=== PATIENT | female | born 1975 | race Caucasian/White ===

== ENCOUNTER 2017-04-30 08:14 | Emergency (ER) | payer OTHER ==
[~2017-04-30] VITALS: Ht 157.4 cm; Wt 122.5 kg
[~2017-04-30 08:14] MED LIST: AMOXICILLIN500 MG PO; BACTRIM DS 8001 TA1 PO; COLACE100 MG PO; CYCLOBENZAPRINE10 MG PO; DEPO PROVER150 MG/M1 IM; HYDROCODONE BIT1 T11 PO; LISINOPRIL HCTZ1 TA1 PO; LISINOPRIL/HCTZ1 TA3 PO; MEDROL DOSEPAK4 MG PO; MOTRIN400 MG PO; MOTRIN800 MG PO; NAPROSYN500 MG PO; PROPRANOLOL HCL60 MG PO; PYRIDIUM200 MG PO; ULTRAM50 MG PO
[2017-04-30] MEDS ORDERED: CORTISPORIN SUS10 ML OT (09:00)
[2017-04-30] MEDS ORDERED: FLONASE ALLERG9.9 ML NAS (09:00)
[2017-04-30] MEDS ORDERED: PREDNISONE10 MG PO (09:00)
== END 2017-04-30 09:01 | disposition home or self-care (01) ==
LOC: ED 08:14
DX: H60.593 Other noninfective acute otitis externa, bilateral (principal); F17.200 Nicotine dependence, unspecified, uncomplicated; Z79.899 Other long term (current) drug therapy

== ENCOUNTER 2018-06-03 11:20 | Emergency (ER) | payer OTHER ==
[~2018-06-03] VITALS: Ht 157.4 cm; Wt 127.0 kg
--- NOTE | ~2018-06-03 | EKG ---
[place], [place] ELECTROCARDIOGRAM REPORT NAME: ROLAN BUTTERFIELD UNIT #: [id number] ROOM: DOCTOR: EPIPHANY DRAFT REPORT BIRTHDATE: [birth year] [facility] Test Date: 2018-06-03 Test Time: 12:25:46 Pat Name: ROLAN BUTTERFIELD Department: Room: Gender: F Music Leader: : 1975 Requested By: JOSEF MENDEZ DNP Order Number: [id number] Reading MD: Sathya Kaur MD Measurements Intervals [place] Rate: 103 P: 46 TN: 139 QRS: -2 QRSD: 82 T: 37 QT: 350 QTc: 458 Interpretive Statements Sinus tachycardia Low voltage, precordial leads Poor RWP Baseline wander in lead(s) V1 Electronically Signed On 06-08-2018 15:03:33 PDT by Sathya Kaur MD CM:EKGRPT:ELECTROCARDIOGRAM REPORT 1225 [id number] JOSEF MENDEZ DNP EPIPHANY DRAFT REPORT JOSEF MENDEZ DNP
[~2018-06-03 11:20] MED LIST changes: +CORTISPORIN SUS10 ML OT; +FLONASE ALLERG9.9 ML NAS; +PREDNISONE10 MG PO
[2018-06-03 12:12] LABS: BASO % 0.2 % (0.0-1.0); EOS # 0.1 10*3/uL (0.0-0.4); EOS % 0.5 % (1.0-4.0); HEMATOCRIT 47.5 % (37.0-47.0); LYMPH # 1.2 10*3/uL (1.3-4.4); MEAN CELL VOLUME 98.3 fl (81.0-99.0); MEAN CORPUSCULAR HGB 33.1 pg (27.0-31.0); MEAN CORPUSCULAR HGB CONC 33.7 g/dl (33.0-37.0); MEAN PLATELET VOLUME 10.9 fl (9.6-12.3); MONO # 0.6 10*3/uL (0.1-1.0); MONO % 4.7 % (3.0-9.0); NEUT % 85.1 % (47.0-73.0); PLATELET COUNT AUTOMATED 237 10*3/uL (130-400); RED BLOOD COUNT 4.83 10*6/uL (4.10-5.10); WHITE BLOOD COUNT 12.9 10*3/uL (4.8-10.8)
[2018-06-03 12:24] LABS: ACT PARTIAL THROMBO TIME 24.1 SECONDS (20.8-31.5)
[2018-06-03 12:42] LABS: ALBUMIN 3.5 gm/dl (3.1-4.5); ALKALINE PHOSPHATASE 59 U/L (45-117); BUN 9 mg/dl (7-24); CHLORIDE 104 mmol/L (98-107); SGOT/AST 45 IU/L (3-35); SGPT/ALT 61 U/L (12-78); SODIUM 137 mmol/L (136-145); TOTAL PROTEIN 7.1 gm/dL (6.4-8.2)
[2018-06-03 12:46] LABS: POTASSIUM 4.6 mmol/L (3.5-5.1); TROPONIN I < 0.015 ng/ml (<0.045)
== END 2018-06-03 13:55 | disposition home or self-care (01) ==
LOC: ED 11:20
PROVIDERS: Nurse Practitioner Family
DX: S29.012A Strain of muscle and tendon of back wall of thorax, initial encounter (principal); R07.89 Other chest pain; I10 Essential (primary) hypertension; F17.200 Nicotine dependence, unspecified, uncomplicated; Z79.899 Other long term (current) drug therapy; W18.39XA Other fall on same level, initial encounter; Y93.01 Activity, walking, marching and hiking; Y92.89 Other specified places as the place of occurrence of the external cause; Y99.8 Other external cause status

== ENCOUNTER 2018-06-06 13:06 | Emergency (ER) | payer OTHER ==
[~2018-06-06] VITALS: Ht 157.4 cm; Wt 127.0 kg
--- NOTE | ~2018-06-06 | EKG ---
[place], [place] ELECTROCARDIOGRAM REPORT NAME: ROLAN BUTTERFIELD UNIT #: [id number] ROOM: DOCTOR: YANIRA DRAFT REPORT BIRTHDATE: [birth year] [facility] Test Date: 2018-06-06 Test Time: 14:48:50 Pat Name: ROLAN BUTTERFIELD Department: Room: Gender: F Car Framer: Audrey Donohue : 1975 Requested By: THEA MARKS PA-C Order Number: [id number] Reading MD: Baldo Rubalcava Measurements Intervals [place] Rate: 75 P: 4 OK: 138 QRS: 2 QRSD: 85 T: 26 QT: 372 QTc: 416 Interpretive Statements Sinus rhythm Low voltage, precordial leads Electronically Signed On 06-08-2018 10:39:15 PDT by Baldo Rubalcava CM:EKGRPT:ELECTROCARDIOGRAM REPORT 1448 [id number] THEA MARKS PA-C EPIPHSTEVE DRAFT REPORT THEA MARKS PA-C
[2018-06-06 14:47] LABS: BASO # 0.1 10*3/uL (0.0-0.1); BASO % 0.3 % (0.0-1.0); EOS # 0.1 10*3/uL (0.0-0.4); EOS % 0.7 % (1.0-4.0); HEMATOCRIT 47.8 % (37.0-47.0); HEMOGLOBIN 16.1 g/dl (12.0-16.0); LYMPH # 1.6 10*3/uL (1.3-4.4); LYMPH % 9.2 % (27.0-41.0); MEAN CELL VOLUME 99.6 fl (81.0-99.0); MEAN CORPUSCULAR HGB 33.5 pg (27.0-31.0); MEAN CORPUSCULAR HGB CONC 33.7 g/dl (33.0-37.0); MONO # 0.8 10*3/uL (0.1-1.0); MONO % 4.6 % (3.0-9.0); NEUT # 14.9 10*3/uL (2.3-7.9); NEUT % 84.6 % (47.0-73.0); PLATELET COUNT AUTOMATED 276 10*3/uL (130-400); WHITE BLOOD COUNT 17.6 10*3/uL (4.8-10.8)
[2018-06-06 15:13] LABS: ALBUMIN 3.5 gm/dl (3.1-4.5); ALKALINE PHOSPHATASE 63 U/L (45-117); BUN 15 mg/dl (7-24); CHLORIDE 103 mmol/L (98-107); CREATININE 0.91 mg/dL (0.55-1.02); POTASSIUM 4.5 mmol/L (3.5-5.1); SGOT/AST 35 IU/L (3-35); SGPT/ALT 55 U/L (12-78); SODIUM 138 mmol/L (136-145); TOTAL PROTEIN 7.4 gm/dL (6.4-8.2)
[2018-06-06 15:14] LABS: TROPONIN I < 0.015 ng/ml (<0.045)
[2018-06-06 15:18] LABS: ACT PARTIAL THROMBO TIME 23.4 SECONDS (20.8-31.5)
[2018-06-06 15:27] LABS: BILIRUBIN NEGATIVE (NEGATIVE); BLOOD 1+ (NEGATIVE); CLARITY CLEAR (CLEAR); COLOR YELLOW (YELLOW); GLUCOSE NEGATIVE (NEGATIVE); KETONE NEGATIVE (NEGATIVE); LEUKO ESTERASE NEGATIVE (NEGATIVE); NITRITE NEGATIVE (NEGATIVE); PH 5.5 (5.0-9.0); UROBILINOGEN 0.2 E.U./dl (0.2-1.0)
[2018-06-06 15:33] LABS: BACTERIA 1+; WBC 0-2 wbc/hpf (0-5)
== END 2018-06-06 16:14 | disposition home or self-care (01) ==
LOC: ED 13:06
PROVIDERS: Physician Assistant
DX: F41.9 Anxiety disorder, unspecified (principal); I10 Essential (primary) hypertension; Z79.899 Other long term (current) drug therapy

== ENCOUNTER → 2018-07-05 | Outpatient (CLI) | payer OTHER ==
[~2018-07-05] MED LIST changes: +CLEOCIN HCL300 MG PO; +CLEOCIN150 MG PO; +EUCERIN DAILY400 ML PO; +HYDROCODONE-AC1 EAC1 PO; +NATURE'S BLEND F1 MG PO; +SULFAMETHOXAZOLE-TMP; +VITAMIN D5000 UNI1 PO
[2018-07-05 15:18] LABS: BASO % 0.3 % (0.0-1.0); EOS # 0.2 10*3/uL (0.0-0.4); EOS % 1.7 % (1.0-4.0); HEMATOCRIT 47.2 % (37.0-47.0); HEMOGLOBIN 15.7 g/dl (12.0-16.0); LYMPH # 2.3 10*3/uL (1.3-4.4); LYMPH % 17.6 % (27.0-41.0); MEAN CORPUSCULAR HGB 32.9 pg (27.0-31.0); MEAN CORPUSCULAR HGB CONC 33.3 g/dl (33.0-37.0); MEAN PLATELET VOLUME 11.3 fl (9.6-12.3); MONO # 0.9 10*3/uL (0.1-1.0); MONO % 6.7 % (3.0-9.0); NEUT # 9.5 10*3/uL (2.3-7.9); NEUT % 73.3 % (47.0-73.0); PLATELET COUNT AUTOMATED 268 10*3/uL (130-400); RED BLOOD COUNT 4.77 10*6/uL (4.10-5.10); RED CELL DISTRI WIDTH 12.9 % (0-14.5)
[2018-07-05 15:27] LABS: ALBUMIN 3.5 gm/dl (3.1-4.5); BUN 11 mg/dl (7-24); CHLORIDE 99 mmol/L (98-107); SODIUM 137 mmol/L (136-145)
[2018-07-05 15:47] LABS: ALKALINE PHOSPHATASE 57 U/L (45-117); SGOT/AST 31 IU/L (3-35); SGPT/ALT 50 U/L (12-78); TOTAL PROTEIN 6.8 gm/dL (6.4-8.2)
[2018-07-05 16:00] LABS: CREATININE 1.01 mg/dL (0.55-1.02)
== END | disposition home or self-care (01) ==
LOC: LAB 13:45 → CARD 14:00
PROVIDERS: Registered Nurse Flight
DX: D72.825 Bandemia (principal); R00.0 Tachycardia, unspecified

== ENCOUNTER 2018-10-08 11:51 | Inpatient (IN) | payer OTHER ==
[~2018-10-08] VITALS: Ht 157.4 cm; Wt 135.2 kg
--- NOTE | ~2018-10-08 | PROC NOTE ---
[place], [place] PROCEDURE NOTE NAME: ROLAN BUTTERFIELD [facility] #: [id number] UNIT #: [id number] ROOM: 405 DOCTOR: SONYA NEWELL MD BIRTHDATE: [birth year] DOS: 10/10/2018 PREOPERATIVE DIAGNOSIS: Right inner thigh abscess. POSTOPERATIVE DIAGNOSIS: Right inner thigh abscess. PROCEDURE: Incision and drainage, right inner thigh abscess. SURGEON: Sonya Newell MD BANDING MACHINE OPERATOR: ERICKSON. ANESTHESIA: MAC with local (5 mL of 1% plain lidocaine). INDICATIONS: This is a 43-year-old lady with a history of a right thigh abscess is here for the above-mentioned procedure. The procedure and its complications were explained to the patient in detail preoperatively. Complications that were discussed included, but were not limited to, bleeding, infection, damage to lying vital structures and prolonged pain. She agreed to proceed. DESCRIPTION OF PROCEDURE: After identifying the patient, the patient was brought to the operating suite and laid in the supine position. After time-out procedure was called, IV sedation was administered by the anesthesia team. The parts were then painted and draped in the usual sterile fashion. Local anesthesia was infiltrated in the line of the incision after it was marked. Incision was made and abscess cavity was entered. Specimen of pus was sent for culture and sensitivity. Thereafter, the cavity was irrigated with saline and packed with 1/4 inch iodoform pack and dressing was placed. The patient tolerated the procedure well and was brought back to the recovery room in stable fashion. There were no complications. Dr. Sonya Newell, the attending surgeon, was present throughout the operating case. Sonya Newell MD CM:PROCNOTE:PROCEDURE NOTE 1307 [id number] SONYA NEWELL MD
[~2018-10-08 11:51] MED LIST changes: -CLEOCIN HCL300 MG PO; -CLEOCIN150 MG PO; -EUCERIN DAILY400 ML PO; -HYDROCODONE-AC1 EAC1 PO; -NATURE'S BLEND F1 MG PO; -SULFAMETHOXAZOLE-TMP; -VITAMIN D5000 UNI1 PO
[2018-10-08 11:53] VITALS: BP 103/55
[2018-10-08] MEDS ORDERED: SULFAMETHOXAZOLE-TMP (12:19)
[2018-10-08 13:55] LABS: BASO % 0.3 % (0.0-1.0); EOS # 0.2 10*3/uL (0.0-0.4); EOS % 1.8 % (1.0-4.0); HEMATOCRIT 46.9 % (37.0-47.0); HEMOGLOBIN 15.8 g/dl (12.0-16.0); LYMPH # 1.2 10*3/uL (1.3-4.4); LYMPH % 8.7 % (27.0-41.0); MEAN CELL VOLUME 100.6 fl (81.0-99.0); MEAN CORPUSCULAR HGB 33.9 pg (27.0-31.0); MEAN CORPUSCULAR HGB CONC 33.7 g/dl (33.0-37.0); MEAN PLATELET VOLUME 10.6 fl (9.6-12.3); MONO # 0.9 10*3/uL (0.1-1.0); MONO % 6.9 % (3.0-9.0); NEUT % 81.9 % (47.0-73.0); PLATELET COUNT AUTOMATED 299 10*3/uL (130-400); RED BLOOD COUNT 4.66 10*6/uL (4.10-5.10); RED CELL DISTRI WIDTH 13.1 % (0-14.5); WHITE BLOOD COUNT 13.4 10*3/uL (4.8-10.8)
[2018-10-08 14:10] LABS: ALBUMIN 3.3 gm/dl (3.1-4.5); ALKALINE PHOSPHATASE 57 U/L (45-117); BUN 13 mg/dl (7-24); CHLORIDE 101 mmol/L (98-107); CREATININE 1.01 mg/dL (0.55-1.02); LIPASE 149 U/L (73-393); SGOT/AST 24 IU/L (3-35); SGPT/ALT 31 U/L (12-78); SODIUM 135 mmol/L (136-145); TOTAL PROTEIN 7.6 gm/dL (6.4-8.2)
[2018-10-08 14:41] VITALS: BP 99/50
[2018-10-08] MEDS ORDERED: EUCERIN DAILY400 ML PO (16:49)
[2018-10-08 20:00] VITALS: BP 106/71
[2018-10-09] VITALS: BP 111/67; BP 128/60
[2018-10-09 06:24] LABS: BASO % 0.4 % (0.0-1.0); EOS # 0.3 10*3/uL (0.0-0.4); EOS % 2.4 % (1.0-4.0); HEMATOCRIT 42.3 % (37.0-47.0); LYMPH # 1.6 10*3/uL (1.3-4.4); MEAN CELL VOLUME 100.7 fl (81.0-99.0); MEAN CORPUSCULAR HGB 33.3 pg (27.0-31.0); MEAN CORPUSCULAR HGB CONC 33.1 g/dl (33.0-37.0); MEAN PLATELET VOLUME 10.6 fl (9.6-12.3); MONO # 0.8 10*3/uL (0.1-1.0); MONO % 7.3 % (3.0-9.0); NEUT # 7.7 10*3/uL (2.3-7.9); NEUT % 74.3 % (47.0-73.0); PLATELET COUNT AUTOMATED 246 10*3/uL (130-400); WHITE BLOOD COUNT 10.4 10*3/uL (4.8-10.8)
[2018-10-09 06:33] LABS: ALBUMIN 2.9 gm/dl (3.1-4.5); ALKALINE PHOSPHATASE 49 U/L (45-117); BUN 10 mg/dl (7-24); CHLORIDE 104 mmol/L (98-107); CHOLESTEROL 140 mg/dL (<200); CREATININE 0.81 mg/dL (0.55-1.02); FREE T4 1.21 ng/dl (0.76-1.46); HDL CHOLESTEROL 24 mg/dl (40-60); LDL CHOLESTEROL 83 mg/dL (9-159); PHOSPHOROUS 2.7 mg/dL (2.5-4.9); POTASSIUM 3.6 mmol/L (3.5-5.1); SGOT/AST 17 IU/L (3-35); SGPT/ALT 25 U/L (12-78); SODIUM 137 mmol/L (136-145); TOTAL PROTEIN 6.6 gm/dL (6.4-8.2); TRIGLYCERIDES 163 mg/dl (<150); VLDL CHOLESTEROL 33 mg/dL (6-40)
[2018-10-09 08:00] VITALS: BP 120/58
[2018-10-09 08:31] LABS: VITAMIN D, 25-HYDROXY 18.2 ng/mL (30-100)
[2018-10-09 12:00] VITALS: BP 102/81
[2018-10-09 16:00] VITALS: BP 118/68
[2018-10-09 20:00] VITALS: BP 106/54
[2018-10-10] VITALS (7 sets, daily range): BP systolic 118–138; BP diastolic 27–86
[2018-10-10 06:17] LABS: BASO % 0.4 % (0.0-1.0); EOS # 0.3 10*3/uL (0.0-0.4); EOS % 2.7 % (1.0-4.0); HEMATOCRIT 43.1 % (37.0-47.0); HEMOGLOBIN 14.3 g/dl (12.0-16.0); LYMPH # 1.7 10*3/uL (1.3-4.4); LYMPH % 17.1 % (27.0-41.0); MEAN CELL VOLUME 101.4 fl (81.0-99.0); MEAN CORPUSCULAR HGB 33.6 pg (27.0-31.0); MEAN CORPUSCULAR HGB CONC 33.2 g/dl (33.0-37.0); MEAN PLATELET VOLUME 10.3 fl (9.6-12.3); MONO # 0.8 10*3/uL (0.1-1.0); MONO % 8.2 % (3.0-9.0); NEUT # 6.9 10*3/uL (2.3-7.9); NEUT % 71.2 % (47.0-73.0); PLATELET COUNT AUTOMATED 240 10*3/uL (130-400); RED BLOOD COUNT 4.25 10*6/uL (4.10-5.10); RED CELL DISTRI WIDTH 12.8 % (0-14.5); WHITE BLOOD COUNT 9.7 10*3/uL (4.8-10.8)
[2018-10-10 06:43] LABS: BUN 7 mg/dl (7-24); CHLORIDE 104 mmol/L (98-107); CREATININE 0.77 mg/dL (0.55-1.02); POTASSIUM 3.7 mmol/L (3.5-5.1); SODIUM 138 mmol/L (136-145)
[2018-10-10] MEDS ORDERED: NATURE'S BLEND F1 MG PO (14:20)
[2018-10-10] MEDS ORDERED: VITAMIN D5000 UNI1 PO (14:20)
[2018-10-10] MEDS ORDERED: CLEOCIN HCL300 MG PO (14:20)
[2018-10-10] MEDS ORDERED: HYDROCODONE-AC1 EAC1 PO (14:20)
[2018-10-10] MEDS ORDERED: CLEOCIN150 MG PO (14:26)
== END 2018-10-10 17:05 | disposition home or self-care (01) | DRG 872 ==
LOC: ED 11:51 → EDHOLD 15:02 → 4E 15:02 → EDHOLD 15:47 → 4E 16:12
PROVIDERS: Internal Medicine; Physician Assistant; ADMIT Internal Medicine
PROC: 0Y9C0ZZ Drainage of Right Upper Leg, Open Approach (ICD-10-PCS; principal; 2018-10-10)
DX: A41.9 Sepsis, unspecified organism (principal); Z68.43 Body mass index [BMI] 50.0-59.9, adult; L02.415 Cutaneous abscess of right lower limb; L03.115 Cellulitis of right lower limb; F17.210 Nicotine dependence, cigarettes, uncomplicated; E66.01 Morbid (severe) obesity due to excess calories; F41.9 Anxiety disorder, unspecified; F32.9 Major depressive disorder, single episode, unspecified; F12.90 Cannabis use, unspecified, uncomplicated; I10 Essential (primary) hypertension; Z86.14 Personal history of Methicillin resistant Staphylococcus aureus infection; Z79.899 Other long term (current) drug therapy; Z82.49 Family history of ischemic heart disease and other diseases of the circulatory system; Z83.3 Family history of diabetes mellitus; Z98.891 History of uterine scar from previous surgery; Z82.0 Family history of epilepsy and other diseases of the nervous system; Z87.01 Personal history of pneumonia (recurrent); Z90.89 Acquired absence of other organs

== ENCOUNTER 2019-11-20 09:34 | Emergency (ER) | payer OTHER ==
[~2019-11-20 09:34] MED LIST changes: +CLEOCIN HCL300 MG PO; +CLEOCIN150 MG PO; +EUCERIN DAILY400 ML PO; +HYDROCODONE-AC1 EAC1 PO; +NATURE'S BLEND F1 MG PO; +SULFAMETHOXAZOLE-TMP; +VITAMIN D5000 UNI1 PO
[2019-11-20] MEDS ORDERED: ZITHROMAX250 MG PO (12:07)
[2019-11-20] MEDS ORDERED: DIFLUCAN150 MG PO (12:07)
[2019-11-20] MEDS ORDERED: PREDNISONE50 MG PO (12:07)
== END 2019-11-20 12:29 | disposition home or self-care (01) ==
LOC: ED 09:34
DX: J20.9 Acute bronchitis, unspecified (principal); Z79.899 Other long term (current) drug therapy; Z20.828 Contact with and (suspected) exposure to other viral communicable diseases

== ENCOUNTER → 2022-10-13 | Outpatient (CLI) | payer OTHER ==
[~2022-10-13] MED LIST changes: +DIFLUCAN150 MG PO; +PREDNISONE50 MG PO; +ZITHROMAX250 MG PO
== END | disposition home or self-care (01) ==
LOC: LAB 13:11
PROVIDERS: ATTEND Nurse Practitioner Women's Health
DX: N63.11 Unspecified lump in the right breast, upper outer quadrant (principal); N64.52 Nipple discharge

== ENCOUNTER → 2022-11-06 | Outpatient (CLI) | payer OTHER | END | disposition home or self-care (01) | LOC: RAD 10:21 | PROVIDERS: ATTEND Nurse Practitioner Family | DX: R05.9 Cough, unspecified (principal) ==

== ENCOUNTER → 2022-11-18 | Outpatient (CLI) | payer OTHER | END | disposition home or self-care (01) | LOC: US 09:00 | PROVIDERS: ATTEND Nurse Practitioner Women's Health | DX: N63.21 Unspecified lump in the left breast, upper outer quadrant (principal); N64.52 Nipple discharge ==

== ENCOUNTER → 2023-05-20 | Outpatient (CLI) | payer OTHER ==
[2023-05-20 10:50] LABS: BASO % 0.3 % (0.0-1.0); EOS # 0.1 10*3/uL (0.0-0.4); EOS % 0.9 % (1.0-4.0); HEMATOCRIT 48.2 % (37.0-47.0); LYMPH # 2.1 10*3/uL (1.3-4.4); MEAN CELL VOLUME 98.6 fl (81.0-99.0); MEAN CORPUSCULAR HGB 32.1 pg (27.0-31.0); MEAN CORPUSCULAR HGB CONC 32.6 g/dl (33.0-37.0); MEAN PLATELET VOLUME 10.6 fl (9.6-12.3); MONO # 0.7 10*3/uL (0.1-1.0); MONO % 5.4 % (3.0-9.0); NEUT # 9.4 10*3/uL (2.3-7.9); NEUT % 76.1 % (47.0-73.0); PLATELET COUNT AUTOMATED 294 10*3/uL (130-400); RED BLOOD COUNT 4.89 10*6/uL (4.10-5.10); RED CELL DISTRI WIDTH 12.8 % (0-14.5); WHITE BLOOD COUNT 12.3 10*3/uL (4.8-10.8)
[2023-05-20 11:30] LABS: ALKALINE PHOSPHATASE 51 U/L (46-116); BUN 10 mg/dl (9-23); CHLORIDE 104 mmol/L (98-107); POTASSIUM 4.2 mmol/L (3.4-5.1); SGPT/ALT 11 U/L (5-49); TOTAL PROTEIN 6.7 gm/dL (6.0-8.0)
== END | disposition home or self-care (01) ==
LOC: LAB 10:28
PROVIDERS: ATTEND Nurse Practitioner Family
DX: L73.2 Hidradenitis suppurativa (principal)

== ENCOUNTER → 2024-02-24 | Outpatient (CLI) | payer OTHER ==
[2024-02-24 15:13] LABS: BASO % 0.2 % (0.0-1.0); EOS # 0.2 10*3/uL (0.0-0.4); EOS % 1.7 % (1.0-4.0); HEMATOCRIT 44.3 % (37.0-47.0); MEAN CELL VOLUME 95.7 fl (81.0-99.0); MEAN CORPUSCULAR HGB 32.2 pg (27.0-31.0); MEAN CORPUSCULAR HGB CONC 33.6 g/dl (33.0-37.0); MEAN PLATELET VOLUME 10.6 fl (9.6-12.3); MONO # 0.7 10*3/uL (0.1-1.0); MONO % 6.9 % (3.0-9.0); NEUT # 6.9 10*3/uL (2.3-7.9); NEUT % 69.4 % (47.0-73.0); PLATELET COUNT AUTOMATED 261 10*3/uL (130-400); RED BLOOD COUNT 4.63 10*6/uL (4.10-5.10); RED CELL DISTRI WIDTH 12.6 % (0-14.5); WHITE BLOOD COUNT 9.9 10*3/uL (4.8-10.8)
[2024-02-24 15:39] LABS: ALKALINE PHOSPHATASE 51 U/L (46-116); BUN 9 mg/dl (9-23); CHLORIDE 105 mmol/L (98-107); POTASSIUM 3.7 mmol/L (3.4-5.1); SGPT/ALT 16 U/L (5-49); TOTAL PROTEIN 6.8 gm/dL (6.0-8.0)
== END | disposition home or self-care (01) ==
LOC: LAB 14:51
PROVIDERS: ATTEND Nurse Practitioner Family
DX: L73.2 Hidradenitis suppurativa (principal); D48.5 Neoplasm of uncertain behavior of skin

== ENCOUNTER → 2024-09-20 | Outpatient (CLI) | payer OTHER ==
[2024-09-20 11:20] LABS: BASO # 0.0 10*3/uL (0.0-0.1); BASO % 0.2 % (0.0-1.0); EOS # 0.1 10*3/uL (0.0-0.4); EOS % 0.8 % (1.0-4.0); MEAN CELL VOLUME 96.0 fl (81.0-99.0); MEAN CORPUSCULAR HGB 32.5 pg (27.0-31.0); MEAN PLATELET VOLUME 11.3 fl (9.6-12.3); MONO # 0.6 10*3/uL (0.1-1.0); MONO % 4.3 % (3.0-9.0); NEUT # 10.5 10*3/uL (2.3-7.9); NEUT % 80.6 % (47.0-73.0); NUCLEATED RED BLOOD CELL 0.0 % (0.0-0.0); NUCLEATED RED BLOOD CELL 0.0 10*3/uL (0.0-0.0); PLATELET COUNT AUTOMATED 225 10*3/uL (130-400); RED CELL DISTRI WIDTH 13.2 % (0-14.5)
[2024-09-20 11:49] LABS: BUN 7 mg/dl (9-23); SGPT/ALT 23 U/L (5-49)
== END ==
LOC: LAB 10:48
PROVIDERS: ATTEND Nurse Practitioner Family
DX: L73.2 Hidradenitis suppurativa (principal)